=== PATIENT | female | born 1975 | race Caucasian/White ===

== ENCOUNTER 2016-10-02 10:00 | Day surgery (SDC) | payer BC ==
[~2016-10-02] VITALS: Ht 160 cm; Wt 75.7 kg
[~2016-10-02 10:00] MED LIST: ACET500T33 PO; ASPI1TAB30 PO; BUPIVACAINE MPF 0.5% 30 ML VIAL. ONE; DEXAMETHASONE SOD PHOS 4 MG/ML VIAL ONE; HYDROmorphone 2 MG/ML VIAL IV PRN; IBUP200T77 PO; IV RINGERS,LACTATED 1000ML 1,000 ML IV SCH; LEVO100T5 PO; LIDOCAINE 1% 1 ML SYRINGE. ID PRN; LIDOCAINE 1% 20 ML VIAL. ONE; LORA10TA68 PO; MAGNILIFE SL; MORPHINE SULFATE 4 MG/ML DISP.SYRIN. IV PRN; ONDANSETRON PF 4 MG/2 ML VIAL. IV PRN; POVIDONE-IODINE 10% TOPICAL OINTMENT 28GM TUBE. TP ONE; PROCHLORPERAZINE 10 MG/2 ML VIAL. IV PRN; fentaNYL PF VIAL 100 MCG/2 ML VIAL IV PRN
[2016-10-02 10:52] LABS: NEG OBC UR NEG; POS OBC UR POS
[2016-10-02 10:55] LABS: BASO # 0.1 x10^3/uL (0.0-0.2); BASO % 1 % (0-3); EOS % 3 % (0-3); HEMATOCRIT 39.2 % (36.0-47.0); HEMOGLOBIN 13.2 g/dL (12.0-15.5); LYMPH # 1.3 x10^3/uL (1.0-4.8); LYMPH % 20 % (24-48); MEAN CORPUSCULAR HEMOGLOBIN 31 pg (25-35); MEAN CORPUSCULAR HGB CONC 34 g/dL (31-37); MEAN CORPUSCULAR VOLUME 91 fL (79-100); MONO % 8 % (0-9); NEUT % 68 % (31-73); PLATELET COUNT 258 x10^3/uL (140-400); WHITE BLOOD COUNT 6.6 x10^3/uL (4.0-11.0)
[2016-10-02 11:12] LABS: CALCIUM 8.2 mg/dL (8.5-10.1); CREATININE 0.6 mg/dL (0.6-1.0); GFR 109.1; POTASSIUM 3.7 mmol/L (3.5-5.1)
[2016-10-02] MEDS ORDERED: BUPIVACAINE 0.5% 50 ML VIAL. ONE (11:43)
[2016-10-02] MEDS ORDERED: LIDOCAINE 2% PF Vial for OR 5 ML VIAL. ONE (11:49)
[2016-10-02] MEDS ORDERED: ONDANSETRON PF 4 MG/2 ML VIAL. ONE (11:49)
[2016-10-02] MEDS ORDERED: DEXAMETHASONE SOD PHOS 20 MG/5 ML VIAL. ONE (11:49)
[2016-10-02] MEDS ORDERED: PROPOFOL 20 ML IV ONE (11:49)
[2016-10-02] MEDS ORDERED: fentaNYL PF VIAL 100 MCG/2 ML VIAL ONE (11:49)
--- NOTE | 2016-10-02 13:26 | PDOC4 ---
OPERATIVE NOTE: Surgeon: Nimisha Pre operative Diagnosis: Hallux valgus left Post operative Diagnosis: Same Procedure: Sunny bunionectomy left foot Anesthesia: LMA with local Hemostasis: Left ankle tourniquet at 250mmHg EBL 1mL Materials: 3.0 partially threaded canulated screw 24mm monster screw Intraoperative findings: Mild thinning of cartilage noted to dorsal medial aspect of 1st metatarsal head and central base of proximal phalanx. Patient tolerated anesthesia and procedure well and transferred to PACU with VSS and VSI to left foot Dictation number [id number] KANDICE GARCÍA DPM Oct 02, 2016 13:26
[2016-10-02] MEDS ORDERED: HYDR-971 PO (13:39)
--- NOTE | 2016-10-02 13:44 | RAD ---
Left foot, 3 views, 10/02/2016: History: Postop bunionectomy There is a surgical screw in the distal first metatarsal which appears to be traversing an osteotomy site. There are gas collections in the adjacent soft tissues presumably on a postsurgical basis. There is a small inferior calcaneal spur. No other bony abnormality is seen. There is no evidence of a retained surgical instrument, needle or radiopaque sponge on these views.
[2016-10-02] MEDS ORDERED: HYDROcodone/APAP 5/325MG 1 TAB TABLET PO ONE (13:45)
[2016-10-02] MEDS ORDERED: HYDROcodone/APAP 5/325MG 1 TAB TABLET ONE (13:46)
[2016-10-02 14:20] VITALS: BP 131/84
--- NOTE | 2016-10-02 15:03 | OP ---
DATE OF SURGERY: 10/02/2016 PREOPERATIVE DIAGNOSIS: Hallux valgus, left foot. POSTOPERATIVE DIAGNOSIS: Hallux valgus, left foot. PROCEDURE: Sunny bunionectomy, left foot. SURGEON: Navya Bansal DPM ANESTHESIA: LMA with local. HEMOSTASIS: Left ankle tourniquet at 250 mmHg. INDICATIONS: The patient is a 41-year-old female who complains of a painful bump to the left foot. She has difficulty wearing shoe gear and ambulating and has failed conservative treatment of wide extra depth shoe gear, accommodative padding, NSAIDs, inserts, ice and the patient's x-ray showed a mild increase in the intermetatarsal angle and a dorsal medial eminence. Thus, the patient was discussed possible risks, benefits and complications to include delayed healing, nonhealing, need for further surgery, overcorrection, undercorrection, recurrence, stiff toe, shortened toe, flail toe, lack of toe purchase, numbness, tingling, burning, infection. All questions were answered. The patient signed consent freely and put in chart. DESCRIPTION OF PROCEDURE: The patient was transported to the operating room via a cart and placed on the operating table in supine position. The patient was given IV Ancef preoperatively and LMA was administered per anesthesia and a Dugan block was administered to the left foot consisting of a 1:1 mixture of 1% lidocaine plain and 0.5% Marcaine plain. A well-padded tourniquet was placed over the left ankle and the left foot was then prepped and draped in the usual aseptic manner. Attention was directed to the left foot. Esmarch bandage was used to exsanguinate the left foot and the left ankle tourniquet was inflated to 250 mmHg. Attention was directed to the dorsal first ray where a 4 cm incision was made just medial to the extensor hallucis longus tendon. This was deepened to the level of the joint capsule and small vessels were cauterized and removed from the incision line. The neurovascular bundle was safely retracted from the incision and a linear incision was made into the metatarsal and reflected the distal 1/4 of the metatarsal joint capsule and evaluated the first metatarsal head. Note, there was some wearing of the cartilage to the dorsal medial aspect of the first metatarsal head and mild to the central base of the proximal phalanx, but no distinct osteochondral lesions or defects noted. Next, a sagittal saw was used to resect the medial eminence and next a lateral release was performed. Hohmann retractor was used to loosen the sesamoid apparatus and next the sagittal saw was used to make a [employer] osteotomy into the medial aspect of the first metatarsal head and the capital fragment was transposed laterally 3 mm. Next, a solid fixation was achieved with a 3.0 partially threaded cannulated screw 24 mm ____ screw. The guidewire was safely removed and solid fixation was achieved. The overhang of bone was removed with sagittal saw and then also resected the dorsal eminence of the first metatarsal head. Noted satisfactory alignment and good range of motion. Next, the wound was copiously irrigated with sterile saline and the joint capsule was reapproximated with 2-0 Vicryl, the skin was reapproximated with 3-0 Vicryl and 4-0 nylon, applied a postoperative injection of Dugan block consisting of 0.5% Marcaine plain, 10 mL of total and 1 mL of ____ Decadron. Next, applied Adaptic gauze with Betadine ointment, 4 x 4 gauze, Kerlix bandage and an Carlos bandage. The ankle tourniquet was deflated and good perfusion was noted to all digits of the left foot. The patient was transported to the PACU with vital signs stable and vascular status intact to the left foot. She is to have postoperative x-rays and instructions. At that time, we will also dispense CAM boot from [employer]. NAVYA BANSAL DPM DR: Sebastián JOB#: [id number] / [id number]
== END 2016-10-02 14:57 | disposition home or self-care (01) ==
LOC: SURG 10:00
PROVIDERS: ATTEND Podiatrist Foot & Ankle Surgery
DX: M20.12 Hallux valgus (acquired), left foot (principal); E66.9 Obesity, unspecified; Z68.41 Body mass index [BMI] 40.0-44.9, adult; E03.9 Hypothyroidism, unspecified; F17.200 Nicotine dependence, unspecified, uncomplicated; Z98.51 Tubal ligation status; Z72.89 Other problems related to lifestyle
CPT/HCPCS: 28292; 36415; 73630; 80048; 81025; 85025; C1769; J0690; J1100; J2405; J2704; J3010; J3490; J2001

== ENCOUNTER 2016-12-24 01:02 | Emergency (ER) | payer BC ==
[~2016-12-24] VITALS: Ht 160 cm; Wt 79.4 kg
[~2016-12-24 01:02] MED LIST changes: -ASPI1TAB30 PO; +ASPI1TAB31 PO; -BUPIVACAINE MPF 0.5% 30 ML VIAL. ONE; -DEXAMETHASONE SOD PHOS 4 MG/ML VIAL ONE; +HYDR-971 PO; -HYDROmorphone 2 MG/ML VIAL IV PRN; -IV RINGERS,LACTATED 1000ML 1,000 ML IV SCH; -LIDOCAINE 1% 1 ML SYRINGE. ID PRN; -LIDOCAINE 1% 20 ML VIAL. ONE; -MORPHINE SULFATE 4 MG/ML DISP.SYRIN. IV PRN; -ONDANSETRON PF 4 MG/2 ML VIAL. IV PRN; -POVIDONE-IODINE 10% TOPICAL OINTMENT 28GM TUBE. TP ONE; -PROCHLORPERAZINE 10 MG/2 ML VIAL. IV PRN; -fentaNYL PF VIAL 100 MCG/2 ML VIAL IV PRN
[2016-12-24 01:42] LABS: BILIRUBIN,URINE NEGATIVE (NEG); GLUCOSE,URINE NEGATIVE (NEG); NITRITE,URINE NEGATIVE (NEG); PROTEIN,URINE 30 mg/dL (NEG-TRACE)
[2016-12-24] MEDS ORDERED: IV NORMAL SALINE 1000ML BAG 1,000 ML IV SCH ×2 (01:45→02:47)
[2016-12-24] MEDS ORDERED: diphenhydrAMINE 50 MG/ML VIAL IVP ONE (01:45)
[2016-12-24] MEDS ORDERED: METOCLOPRAMIDE HCL 10 MG/2 ML VIAL. IV ONE (01:45)
--- NOTE | 2016-12-24 01:49 | PHYS DOC ---
Past Medical History Past Medical History: Hypothyroid Past Surgical History: Tonsillectomy Additional Past Surgical Histo: foot,hand,D&C Alcohol Use: None Drug Use: None Adult General Chief Complaint Chief Complaint: HEADACHE HPI HPI Patient is a 41 year old female presents with headache. This patient has a history of migraines she states. Last migraine was 3 weeks ago. Today she began having a headache. At 3 PM she began having vomiting and headache worse. It is behind her eyes and throbbing. No thunderclap or worse headache of her life. No neurologic symptoms. No fever or neck pain. Symptoms are constant. No known improving or alleviating factors. She did try Tylenol at home without relief. Review of Systems Review of Systems Constitutional: Denies fever or chills Eyes: Denies change in visual acuity, redness, or eye pain HENT: Denies nasal congestion or sore throat Respiratory: Denies cough or shortness of breath Cardiovascular: No additional information not addressed in HPI GI: Denies abdominal pain, nausea, vomiting, bloody stools or diarrhea : Denies dysuria or hematuria Musculoskeletal: Denies back pain or joint pain Integument: Denies rash or skin lesions Neurologic: No focal weakness or sensory changes Endocrine: Denies polyuria or polydipsia Current Medications Current Medications Current Medications Medications (Trade) Dose Ordered Sig/Kayleigh Start Time Stop Time Status Last Admin Dose Admin Diphenhydramine HCl (Benadryl) 25 mg 1X ONCE 12/24/16 01:45 12/24/16 01:46 DC 12/24/16 01:59 25 MG Metoclopramide HCl (Reglan) 10 mg 1X ONCE 12/24/16 01:45 12/24/16 01:46 DC 12/24/16 01:57 10 MG Sodium Chloride 1,000 ml @ 1,000 mls/hr Q1H 12/24/16 02:47 12/24/16 03:46 12/24/16 03:06 1,000 MLS/HR Allergies Allergies Allergies Coded Allergies Type Severity Reaction Last Updated Verified No Known Drug Allergies 10/02/16 No Physical Exam Physical Exam Constitutional: Well developed, well nourished, no acute distress, non-toxic appearance. HENT: Normocephalic, atraumatic, bilateral external ears normal, oropharynx moist, no oral exudates, nose normal. Eyes: PERRLA, EOMI, conjunctiva normal, no discharge. Neck: Normal range of motion, no tenderness, supple, no stridor. Cardiovascular:Heart rate regular rhythm, no murmur Lungs & Thorax: Bilateral breath sounds clear to auscultation Abdomen: Bowel sounds normal, soft, no tenderness, no masses, no pulsatile masses. Skin: Warm, dry, no erythema, no rash. Back: No tenderness, no CVA tenderness. Extremities: No tenderness, no cyanosis, no clubbing, ROM intact, no edema. Neurologic: Alert and oriented X 3, normal motor function, normal sensory function, no focal deficits noted. Psychologic: Affect normal, judgement normal, mood normal. Current Patient Data Vital Signs Vital Signs Date Time Temp Pulse Resp B/P (MAP) Pulse Ox O2 Delivery O2 Flow Rate FiO2 12/24/16 01:25 97.8 98 20 133/77 (95) 97 Room Air 97.8 Lab Values Laboratory Tests Test 12/24/16 01:32 Urine Collection Type Unknown Urine Color Suad Urine Clarity Turbid Urine pH 6.0 Urine Specific Round O >=1.030 Urine Protein 30 mg/dL (NEG-TRACE) Urine Glucose (UA) Negative mg/dL (NEG) Urine Ketones (Stick) >=80 mg/dL (NEG) Urine Blood Negative (NEG) Urine Nitrite Negative (NEG) Urine Bilirubin Negative (NEG) Urine Urobilinogen Dipstick 1.0 mg/dL (0.2 mg/dL) Urine Leukocyte Esterase Small (NEG) Urine RBC 0 /HPF (0-2) Urine WBC Occ /HPF (0-4) Urine Squamous Epithelial Cells Mod /LPF Urine Amorphous Sediment Present /HPF Urine Bacteria Few /HPF (0-FEW) Urine Mucus Mod /LPF EKG EKG [] Radiology/Procedures Radiology/Procedures [] Course & Med Decision Making Course & Med Decision Making Pertinent Labs and Imaging studies reviewed. (See chart for details) Given known history of migraine urgent imaging is not initially warranted. We will attempt IV Reglan, Benadryl and normal saline. Will evaluate and check a urinalysis also. UA with elevated specific gravity. Patient feels better with the treatment given here. I'll give a second liter of normal saline. She is in agreement for dismissal given that she feels better. Results return for any fevers or worsening symptoms. No indication for imaging currently Dragon Disclaimer Dragon Disclaimer This electronic medical record was generated, in whole or in part, using a voice recognition dictation system. Departure Departure Referrals: LYNETTE THOMPSON DO (PCP) Scripts Ondansetron (ZOFRAN ODT) 4 Mg Tab.rapdis 1 TAB SL Q8HRS for 7 Days, #21 TAB Prov: FAUSTINA CAAL MD 12/24/16 FAUSTINA CAAL MD Dec 24, 2016 01:49
[2016-12-24 01:53] LABS: BACTERIA,URINE FEW /HPF (0-FEW); RBC,URINE 0 /HPF (0-2); SQUAMOUS EPITHELIAL CELL,UR MOD /LPF; WBC,URINE OCC /HPF (0-4)
[2016-12-24] MEDS ORDERED: ONDA4TAB10 SL (02:52)
[2016-12-24 04:00] VITALS: BP 124/70
== END 2016-12-24 04:06 | disposition home or self-care (01) ==
LOC: ER 01:02
DX: R51 Headache (principal); R11.10 Vomiting, unspecified; G43.909 Migraine, unspecified, not intractable, without status migrainosus; E03.9 Hypothyroidism, unspecified
CPT/HCPCS: 81001; 87086; 96361; 96374; 96375; 99284; J1200; J2765; J7030

== ENCOUNTER 2017-01-17 18:37 | Emergency (ER) | payer BC ==
[~2017-01-17 18:37] MED LIST changes: +ONDA4TAB10 SL
[2017-01-17] MEDS ORDERED: KETOROLAC 30 MG/ML INJ. IV ONE (19:00)
[2017-01-17] MEDS ORDERED: diphenhydrAMINE 50 MG/ML VIAL IVP ONE (19:00)
[2017-01-17] MEDS ORDERED: IV NORMAL SALINE 1000ML BAG 1,000 ML IV ONE (19:00)
[2017-01-17] MEDS ORDERED: PROMETHAZINE 25 MG in IV NORMAL SALINE 50ML 50 ML IV PRN (19:00)
--- NOTE | 2017-01-17 19:01 | PHYS DOC ---
Past Medical History Past Medical History: Diabetes-Type I, Hypothyroid, Other Additional Past Medical Histor: "headache" Past Surgical History: Tonsillectomy, Tubal ligation, Other Additional Past Surgical Histo: bunions,bilat feet surguries, Alcohol Use: None Drug Use: None Adult General Chief Complaint Chief Complaint: HEADACHE HPI HPI Patient is a 41 year old female presents to the emergency apartment with complaints of green headache. Patient reports that she works overnight shift and when she returned home this morning she had a headache. She states that she went to bed and awakened at 10 to take ibuprofen 400 mg. Patient states approximately 4 hours ago she had 2 episodes of vomiting. Patient reports this headache to be typical of her migraine headaches, not the most intense or severe headache she's ever suffered. She states it did not have a sudden onset, no thunderclap headache. Patient states the pain as diffuse without radiation. She has associated nausea and vomiting without photophobia. She reports no fever , no neck pain, chest pain, no abdominal pain. Review of Systems Review of Systems Constitutional: Denies fever or chills [] Eyes: Denies change in visual acuity, redness, or eye pain [] HENT: Denies nasal congestion or sore throat [] Respiratory: Denies cough or shortness of breath [] Cardiovascular: No additional information not addressed in HPI [] GI: Denies abdominal pain, nausea, vomiting, bloody stools or diarrhea [] : Denies dysuria or hematuria [] Musculoskeletal: Denies back pain or joint pain [] Integument: Denies rash or skin lesions [] Neurologic: Headache without focal weakness or sensory change Endocrine: Denies polyuria or polydipsia [] All other systems were reviewed and found to be within normal limits, except as documented in this note. Current Medications Current Medications Current Medications Medications (Trade) Dose Ordered Sig/Kayleigh Start Time Stop Time Status Last Admin Dose Admin Diphenhydramine HCl (Benadryl) 50 mg 1X ONCE 01/17/17 19:00 01/17/17 19:01 DC 01/17/17 19:10 50 MG Ketorolac Tromethamine (Toradol) 30 mg 1X ONCE 01/17/17 19:00 01/17/17 19:01 DC 01/17/17 19:10 30 MG Promethazine HCl 25 mg/Sodium Chloride 51 ml @ 151.5 mls/ hr PRN Q6HRS PRN 01/17/17 19:00 01/17/17 19:10 151.5 MLS/HR Sodium Chloride 1,000 ml @ 1,000 mls/hr 1X ONCE 01/17/17 19:00 01/17/17 19:59 01/17/17 19:10 1,000 MLS/HR Allergies Allergies Allergies Coded Allergies Type Severity Reaction Last Updated Verified No Known Drug Allergies 10/02/16 No Physical Exam Physical Exam Constitutional: Well developed, well nourished, no acute distress, non-toxic appearance. [] HENT: Normocephalic, atraumatic, bilateral external ears normal, oropharynx moist, no oral exudates, nose normal. [] Eyes: PERRLA, EOMI, conjunctiva normal, no discharge. [] Neck: Normal range of motion, no tenderness, supple without lymphadenopathy, no meningeal signs Cardiovascular:Heart rate regular rhythm, no murmur [] Lungs & Thorax: Bilateral breath sounds clear to auscultation [] Abdomen: Bowel sounds normal, soft, no tenderness, no masses, no pulsatile masses. [] Skin: Warm, dry, no erythema, no rash. [] Back: No tenderness, no CVA tenderness. [] Extremities: No tenderness, no cyanosis, no clubbing, ROM intact, no edema. [] Neurologic: Alert and oriented X 3, normal motor function, normal sensory function, no focal deficits noted. [] Psychologic: Affect normal, judgement normal, mood normal. [] Current Patient Data Vital Signs Vital Signs Date Time Temp Pulse Resp B/P (MAP) Pulse Ox O2 Delivery O2 Flow Rate FiO2 01/17/17 18:59 98.0 79 16 141/78 (99) 98 Room Air 98.0 EKG EKG [] Radiology/Procedures Radiology/Procedures [] Course & Med Decision Making Course & Med Decision Making With patient's long-standing history of migraine headaches, per report that this is a typical headache, imaging is not indicated at this time. Patient will given normal saline, Benadryl, Phenergan and Toradol. Patient states she has had relief of her headache. She has no further headache or nausea. Plan will be to discharge home with prescription for Phenergan and ibuprofen. She's plan to follow-up with primary care. Return to the emergency department his symptoms or concerns or worsening of current condition. Pertinent Labs and Imaging studies reviewed. (See chart for details) [] Dragon Disclaimer Dragon Disclaimer This electronic medical record was generated, in whole or in part, using a voice recognition dictation system. Departure Departure Impression: Primary Impression: Cephalgia Referrals: LYNETTE THOMPSON DO (PCP) Patient Instructions: General Headache Without Cause Scripts Ibuprofen (IBUPROFEN) 800 Mg Tablet 800 MG PO PRN Q6HRS Y for headache, #20 TAB Prov: ANN-MARIE SINGH APRN 01/17/17 Promethazine Hcl (PROMETHAZINE HCL) 25 Mg Tablet 1 TAB PO PRN Q6HRS Y for NAUSEA, #20 TAB Prov: ANN-MARIE SINGH APRN 01/17/17 Problem Qualifiers Primary Impression: Cephalgia Headache type: other headache syndrome Qualified Codes: G44.89 - Other headache syndrome ANN-MARIE SINGH APRN Jan 17, 2017 19:01
[2017-01-17] MEDS ORDERED: PROM25TA10 PO (19:40)
[2017-01-17] MEDS ORDERED: IBUP-1060 PO (19:40)
[2017-01-17 20:00] VITALS: BP 114/65
== END 2017-01-17 20:06 | disposition home or self-care (01) ==
LOC: ER 18:37
DX: G44.89 Other headache syndrome (principal); G43.909 Migraine, unspecified, not intractable, without status migrainosus; E10.9 Type 1 diabetes mellitus without complications; E03.9 Hypothyroidism, unspecified
CPT/HCPCS: 96365; 96375; 99284; J1200; J1885; J2550; J7030

== ENCOUNTER 2017-09-08 09:17 | Emergency (ER) | payer BC ==
[2017-09-08 09:32] LABS: URINE HCG POC HCG NEGATIVE (Negative)
[2017-09-08] MEDS: IV NORMAL SALINE 1000ML BAG 1,000 ML IV (09:45)
[2017-09-08] MEDS: KETOROLAC 30 MG/ML INJ. IV (09:51)
[2017-09-08] MEDS: diphenhydrAMINE 50 MG/ML VIAL IVP (09:51)
[2017-09-08] MEDS: PROCHLORPERAZINE 10 MG/2 ML VIAL. IV (09:51)
== END 2017-09-08 11:08 | disposition home or self-care (01) ==
LOC: ER 09:17
DX: G43.909 Migraine, unspecified, not intractable, without status migrainosus (principal); E10.9 Type 1 diabetes mellitus without complications; E03.9 Hypothyroidism, unspecified; Z98.51 Tubal ligation status
CPT/HCPCS: 81025; 96361; 96374; 96375; 99284; J0780; J1200; J1885; J7030